=== PATIENT | female | born 2000 | race Caucasian/White ===

== ENCOUNTER 2020-08-08 15:12 | Inpatient (IN) ==
[2020-08-08] MEDS ORDERED: LACTATED RINGERS 1,000 ML IV SCH (16:00)
[2020-08-08] MEDS ORDERED: MEPERIDINE 50 MG/1 ML VIAL IV PRN (16:00)
[2020-08-08] MEDS ORDERED: BUTORPHANOL 1 MG/ML VIAL IV PRN (16:00)
[2020-08-08] MEDS ORDERED: ONDANSETRON 4 MG/2 ML VIAL IV PRN (16:00)
[2020-08-08] MEDS ORDERED: BUTORPHANOL 2 MG/ML VIAL IV PRN (16:00)
[2020-08-08] MEDS ORDERED: OXYTOCIN/LR 20 UNIT/1,000 ML BAG IV PRN (16:00)
[2020-08-08] MEDS ORDERED: ePHEDrine 50 MG/ML VIAL IV PRN (16:17)
[2020-08-08] MEDS ORDERED: PROMETHAZINE 25 MG/1 ML VIAL IM ONE (16:17)
[2020-08-08] MEDS ORDERED: CITRIC ACID/SODIUM CITRATE 30 ML UDCUP PO ONE (16:17)
[2020-08-08] MEDS ORDERED: NALOXONE 0.4 MG/ML VIAL IV PRN (16:17)
[2020-08-08] MEDS ORDERED: FAMOTIDINE 20 MG/2 ML VIAL IV ONE (16:17)
[2020-08-08] MEDS ORDERED: hydrOXYzine HCL 25 MG/1 ML VIAL IM PRN (16:17)
[2020-08-08] MEDS ORDERED: LACTATED RINGERS 1,000 ML IV ONE ×2 (16:17→23:33)
[2020-08-08] MEDS ORDERED: diphenhydrAMINE 50 MG/1 ML VIAL IV PRN ×2 (16:17)
[2020-08-08] MEDS ORDERED: ONDANSETRON 4 MG/2 ML VIAL IV ONE (16:17)
[2020-08-08] MEDS ORDERED: fentaNYL 2 MCG/ROPIV 0.2% EPID 100 ML EPIDURAL SCH (16:30)
[2020-08-08 16:38] LABS: Basophils % 0.2 % (0.0-0.8); Eosinophils % 0.3 % (0.00-10.9); Hematocrit 42.5 VOL% (35.7-47.0); Hemoglobin 14.4 GM/DL (12.0-16.0); Immature Granulocytes % 0.4 %; Immature Granulocytes Absolute 0.05 #; Lymphocytes # 1.1 10*3/uL (1.4-4.0); Lymphocytes % 9.6 % (21.3-54.2); Mean Corpuscular HGB Conc 33.9 GM/DL (32-36); Mean Platelet Volume 13.4 FL (9.6-12.0); Neutrophils % 83.5 % (38.7-73.9); Platelet Count 165 T/CUMM (130-400); Red Blood Count 4.94 MC/CUMM (3.8-5.5); Red Cell Distribution Width 13.8 % (9.3-17.3); White Blood Count 11.6 T/CUMM (4-12)
[2020-08-08 18:56] LABS: Bilirubin,Urine Negative (Negative); Blood, Urine Negative (Negative); Glucose,Urine (UA) Negative (Negative); Ketones,Urine 80 mg/dL (Negative); Mucus,Urine Few /LPF (Occasional); Nitrite,Urine Negative (Negative); Protein,Urine 30 MG/DL; Urine Appearance CLEAR (Clear); Urine Color Yellow (Yellow); Urine Specific Gravity 1.018 (1.001-1.035); Urine Urobilinogen < 2.0 EU/DL (0.2-1.0); WBC,Urine <1 /HPF (0-6)
[2020-08-08 22:24] LABS: Cord Venous Blood HCO3 21.2 MMOL/L; Cord Venous Blood PCO2 38.3 MMHG; Cord Venous Blood PO2 32.1
[2020-08-08] MEDS ORDERED: HYDROCORTISONE 2.5% RECTAL CREAM 30 GM TUBE TOP PRN (23:33)
[2020-08-08] MEDS ORDERED: ACETAMINOPHEN 325 MG TABLET PO PRN (23:33)
[2020-08-08] MEDS ORDERED: BENZOCAINE 20%/MENTHOL 0.5% SPRAY 56 GM CAN TOP PRN (23:33)
[2020-08-08] MEDS ORDERED: LANOLIN 50% CREAM 0.3 OZ TUBE TOP PRN (23:33)
[2020-08-08] MEDS ORDERED: WITCH HAZEL PADS 100/JAR TOP PRN (23:33)
[2020-08-08] MEDS ORDERED: RHO(D) IMMUNE GLOBULIN 300 MCG SYRINGE IM ONE (23:33)
[2020-08-08] MEDS ORDERED: BISACODYL 10 MG SUPP RECTAL PRN (23:33)
[2020-08-08] MEDS ORDERED: OXYTOCIN/LR 20 UNIT/1,000 ML BAG IV ONE (23:33)
[2020-08-08] MEDS ORDERED: MEASLES/MUMPS/RUBELLA VACCINE 0.5 ML VIAL SUBCUT ONE (23:33)
[2020-08-08] MEDS ORDERED: DIPH/TET/ACEL PERT BOOSTER VACCINE 0.5 ML VIAL IM ONE (23:33)
[2020-08-08] MEDS ORDERED: ACETAMINOPHEN/CODEINE 300-30 MG TABLET PO PRN (23:42)
[2020-08-09] MEDS: IBUPROFEN 800 MG TABLET PO PRN ×2 (05:04→19:20)
[2020-08-09 07:03] LABS: Basophils % 0.3 % (0.0-0.8); Eosinophils # 0.1 10*3/uL (0.0-0.87); Eosinophils % 0.5 % (0.00-10.9); Hematocrit 37.3 VOL% (35.7-47.0); Hemoglobin 12.7 GM/DL (12.0-16.0); Immature Granulocytes % 0.4 %; Immature Granulocytes Absolute 0.04 #; Lymphocytes # 1.4 10*3/uL (1.4-4.0); Lymphocytes % 12.4 % (21.3-54.2); Mean Corpuscular Volume 85.2 FL (87-102); Mean Platelet Volume 13.5 FL (9.6-12.0); Monocytes % 9.9 % (1.7-12.7); Neutrophils % 76.5 % (38.7-73.9); Platelet Count 153 T/CUMM (130-400); Red Blood Count 4.38 MC/CUMM (3.8-5.5); Red Cell Distribution Width 13.9 % (9.3-17.3); White Blood Count 11.1 T/CUMM (4-12)
[2020-08-09] MEDS: DOCUSATE SODIUM 100 MG CAPSULE PO SCH ×3 (09:33→21:08)
[2020-08-10 08:58] VITALS: BP 119/69
[2020-08-10] MEDS: DOCUSATE SODIUM 100 MG CAPSULE PO SCH (09:50)
[2020-08-10] MEDS ORDERED: INFLUENZA VIRUS VACCINE 0.5 ML SYRINGE IM ONE (09:57)
== END 2020-08-10 12:25 | disposition home or self-care (01) | DRG 560 ==
LOC: N.LDOUT 15:12 → N.LD 15:14 → N.OB 08-09 13:38
PROVIDERS: ADMIT Obstetrics & Gynecology; ATTEND Obstetrics & Gynecology

== ENCOUNTER 2021-07-29 11:55 | Inpatient (IN) ==
[2021-07-29] MEDS ORDERED: ONDANSETRON 4 MG/2 ML VIAL IV STA (13:32)
[2021-07-29] MEDS ORDERED: SODIUM CHLORIDE 0.9% 1,000 ML IV STA (13:32)
[2021-07-29 13:37] LABS: Bacteria,Urine Many /HPF (Few); Blood, Urine Negative (Negative); Glucose,Urine (UA) Negative (Negative); Ketones,Urine 80 mg/dL (Negative); Mucus,Urine Many /LPF (Occasional); Nitrite,Urine Negative (Negative); Protein,Urine 100 MG/DL; Squamous Epithelial Cell,Urine Many /HPF (0-10); Urine Appearance CLOUDY (Clear); Urine Color Amber (Yellow); Urine Specific Gravity 1.028 (1.001-1.035)
[2021-07-29 13:39] LABS: Bilirubin,Urine Moderate mg/dL (Negative)
[2021-07-29 14:01] LABS: Basophils % 0.3 % (0.0-0.8); Eosinophils % 0.3 % (0.00-10.9); Hematocrit 49.1 VOL% (35.7-47.0); Hemoglobin 15.8 GM/DL (12.0-16.0); Immature Granulocytes % 0.5 %; Immature Granulocytes Absolute 0.06 #; Lymphocytes # 0.8 10*3/uL (1.4-4.0); Lymphocytes % 6.8 % (21.3-54.2); Mean Corpuscular HGB Conc 32.2 GM/DL (32-36); Mean Corpuscular Volume 87.4 FL (87-102); Mean Platelet Volume 11.9 FL (9.6-12.0); Monocytes % 7.5 % (1.7-12.7); Neutrophils % 84.6 % (38.7-73.9); Platelet Count 246 T/CUMM (130-400); Red Blood Count 5.62 MC/CUMM (3.8-5.5); Red Cell Distribution Width 13.5 % (9.3-17.3); White Blood Count 11.5 T/CUMM (4-12)
[2021-07-29 14:22] LABS: Bilirubin,Total 5.6 MG/DL (0.20-1.00); Calcium 9.8 MG/DL (8.5-10.1); Osmolality,Calculated 266.1 MOS/KG (273-304); Potassium 3.5 MMOL/L (3.5-5.1); Total Protein 8.1 G/DL (6.4-8.2)
[2021-07-29 17:25] LABS: Hepatitis B Core IgM Quant 0.16 Index; Hepatitis B Surface Ag Quant < 0.10 Index; Hepatitis B Surface Ag Result Non-Reactive (NonReactive); Hepatitis C Virus Ab Quant 0.04 Index; Hepatitis C Virus Ab Result Non-Reactive (NonReactive)
[2021-07-29] MEDS ORDERED: ACETAMINOPHEN 325 MG TABLET PO PRN (17:56)
[2021-07-29] MEDS: PIPERACILLIN/TAZOBACTAM 3,375 MG in SODIUM CHLORIDE 0.9% 100 ML IV SCH (19:47)
[2021-07-29 20:14] LABS: Barbiturates Screen,Urine Negative (Negative); Benzodiazepines Screen,Urine Negative (Negative); Cannabinoid Screen,Urine Negative (Negative); Opiate Screen,Urine Negative (Negative); Phencyclidine Screen,Urine Negative (Negative)
[2021-07-29] MEDS: SODIUM CHLORIDE 0.9% 1,000 ML IV SCH (23:45)
[2021-07-30] MEDS: MORPHINE 2 MG/1 ML SYRINGE IV PRN ×2 (00:12→17:54)
[2021-07-30] MEDS: ONDANSETRON 4 MG/2 ML VIAL IV PRN ×2 (00:15→17:53)
[2021-07-30] MEDS: PIPERACILLIN/TAZOBACTAM 3,375 MG in SODIUM CHLORIDE 0.9% 100 ML IV SCH ×3 (04:03→19:55)
[2021-07-30 04:47] LABS: Basophils % 0.3 % (0.0-0.8); Eosinophils # 0.1 10*3/uL (0.0-0.87); Eosinophils % 0.8 % (0.00-10.9); Hematocrit 44.6 VOL% (35.7-47.0); Hemoglobin 14.4 GM/DL (12.0-16.0); Immature Granulocytes % 0.7 %; Immature Granulocytes Absolute 0.07 #; Lymphocytes # 1.1 10*3/uL (1.4-4.0); Lymphocytes % 10.3 % (21.3-54.2); Mean Corpuscular HGB Conc 32.3 GM/DL (32-36); Mean Platelet Volume 12.9 FL (9.6-12.0); Monocytes % 11.3 % (1.7-12.7); Neutrophils % 76.6 % (38.7-73.9); Platelet Count 223 T/CUMM (130-400); Red Blood Count 5.01 MC/CUMM (3.8-5.5); Red Cell Distribution Width 13.6 % (9.3-17.3); White Blood Count 10.4 T/CUMM (4-12)
[2021-07-30 06:14] LABS: Albumin 3.2 G/DL (3.4-5.0); Bilirubin,Total 5.4 MG/DL (0.20-1.00); Calcium 9.1 MG/DL (8.5-10.1); Potassium 3.7 MMOL/L (3.5-5.1); Thyroid Stimulating Hormone 1.09 uIU/ml (0.358-3.74); Total Protein 6.7 G/DL (6.4-8.2)
[2021-07-30] MEDS ORDERED: DEXTROSE 50% 25 GM/50 ML VIAL IV ONE (07:04)
[2021-07-30] MEDS ORDERED: DEXTROSE 50% 25 GM/50 ML VIAL IV PRN (07:05)
[2021-07-30] MEDS: SODIUM CHLORIDE 0.9% 1,000 ML IV SCH ×3 (08:46→17:47)
[2021-07-30] MEDS ORDERED: PANTOPRAZOLE 40 MG TABLET PO SCH (09:00)
[2021-07-30] MEDS: PANTOPRAZOLE 40 MG VIAL IV SCH (09:50)
[2021-07-30] MEDS: busPIRone 15 MG TABLET PO SCH (20:44)
[2021-07-30] MEDS ORDERED: busPIRone 5 MG TABLET PO SCH (21:00)
[2021-07-31] MEDS: SODIUM CHLORIDE 0.9% 1,000 ML IV SCH ×6 (00:25→22:45)
[2021-07-31] MEDS: PIPERACILLIN/TAZOBACTAM 3,375 MG in SODIUM CHLORIDE 0.9% 100 ML IV SCH ×2 (04:10→12:22)
[2021-07-31 06:56] LABS: PT Patient Result 10.9 SECS (10.5-12.0)
[2021-07-31] MEDS ORDERED: INDOMETHACIN SUPP 50 MG SUPP RECTAL ONE ×2 (08:00→13:00)
[2021-07-31] MEDS: busPIRone 15 MG TABLET PO SCH ×2 (09:15→21:15)
[2021-07-31] MEDS: PANTOPRAZOLE 40 MG VIAL IV SCH (09:15)
[2021-07-31] MEDS: LACTATED RINGERS 1,000 ML IV SCH (13:04)
[2021-07-31] MEDS ORDERED: ONDANSETRON 4 MG/2 ML VIAL ONE (13:52)
[2021-07-31] MEDS ORDERED: MIDAZOLAM 2 MG/2 ML VIAL ONE (13:52)
[2021-07-31] MEDS ORDERED: SEVOFLURANE 1 UNIT/15 MINUTE INH ONE ×4 (13:52→15:35)
[2021-07-31] MEDS ORDERED: LIDOCAINE 2% 5 ML VIAL ONE (13:52)
[2021-07-31] MEDS ORDERED: DEXAMETHASONE 4 MG/1 ML VIAL ONE (13:52)
[2021-07-31] MEDS ORDERED: propofoL 200 MG/20 ML VIAL IV ONE (13:52)
[2021-07-31] MEDS ORDERED: fentaNYL 100 MCG/2 ML VIAL ONE (13:52)
[2021-07-31] MEDS ORDERED: ROCURONIUM 50 MG/5 ML VIAL IV ONE (13:52)
[2021-07-31] MEDS ORDERED: GLYCOPYRROLATE 0.4 MG/2 ML VIAL ONE (15:16)
[2021-07-31] MEDS ORDERED: NEOSTIGMINE 10 MG/10 ML VIAL ONE (15:16)
[2021-07-31] MEDS ORDERED: PHENOL 1.4% THROAT SPRAY 177 ML BOTTLE PO PRN (16:58)
[2021-08-01] MEDS: PIPERACILLIN/TAZOBACTAM 3,375 MG in SODIUM CHLORIDE 0.9% 100 ML IV SCH ×3 (00:30→21:43)
[2021-08-01 04:02] LABS: Basophils % 0.1 % (0.0-0.8); Eosinophils % 0.1 % (0.00-10.9); Hemoglobin 12.7 GM/DL (12.0-16.0); Immature Granulocytes % 0.5 %; Immature Granulocytes Absolute 0.04 #; Lymphocytes % 12.7 % (21.3-54.2); Mean Corpuscular HGB Conc 32.6 GM/DL (32-36); Mean Corpuscular Volume 88.2 FL (87-102); Mean Platelet Volume 12.6 FL (9.6-12.0); Monocytes % 7.9 % (1.7-12.7); Neutrophils % 78.7 % (38.7-73.9); Platelet Count 188 T/CUMM (130-400); Red Blood Count 4.42 MC/CUMM (3.8-5.5); Red Cell Distribution Width 13.6 % (9.3-17.3); White Blood Count 7.6 T/CUMM (4-12)
[2021-08-01 04:21] LABS: Albumin 2.7 G/DL (3.4-5.0); Bilirubin,Total 3.9 MG/DL (0.20-1.00); Calcium 8.9 MG/DL (8.5-10.1); Osmolality,Calculated 271.7 MOS/KG (273-304); Potassium 3.8 MMOL/L (3.5-5.1); Total Protein 6.2 G/DL (6.4-8.2)
[2021-08-01] MEDS: SODIUM CHLORIDE 0.9% 1,000 ML IV SCH ×3 (08:28→21:42)
[2021-08-01] MEDS: busPIRone 15 MG TABLET PO SCH ×2 (08:28→21:42)
[2021-08-01] MEDS: LACTATED RINGERS 1,000 ML IV SCH (08:28)
[2021-08-01] MEDS: PANTOPRAZOLE 40 MG VIAL IV SCH (09:52)
[2021-08-01] MEDS ORDERED: HYDROmorphone 2 MG/1 ML VIAL IV PRN (10:45)
[2021-08-01] MEDS ORDERED: SUCCINYLCHOLINE 200 MG/10 ML VIAL ONE (14:31)
[2021-08-01] MEDS ORDERED: DEXAMETHASONE 4 MG/1 ML VIAL ONE (14:31)
[2021-08-01] MEDS ORDERED: ONDANSETRON 4 MG/2 ML VIAL ONE (14:31)
[2021-08-01] MEDS ORDERED: propofoL 200 MG/20 ML VIAL IV ONE ×2 (14:31→16:47)
[2021-08-01] MEDS ORDERED: LIDOCAINE 2% 5 ML VIAL ONE (14:31)
[2021-08-01] MEDS ORDERED: ROCURONIUM 50 MG/5 ML VIAL IV ONE ×2 (14:31→16:47)
[2021-08-01] MEDS ORDERED: BUPIVACAINE MPF 0.25% 30 ML VIAL ONE (14:54)
[2021-08-01] MEDS ORDERED: LIDOCAINE 1%/EPI INJ 20 ML VIAL ONE (14:54)
[2021-08-01] MEDS ORDERED: TISSUE ADHESIVE 1 EACH APPLICATOR TOP ONE (14:54)
[2021-08-01] MEDS ORDERED: fentaNYL 100 MCG/2 ML VIAL ONE ×2 (15:38→16:29)
[2021-08-01] MEDS ORDERED: MIDAZOLAM 2 MG/2 ML VIAL ONE (15:38)
[2021-08-01] MEDS ORDERED: DESFLURANE 1 UNIT/15 MINUTE INH ONE ×3 (16:47→17:48)
[2021-08-01] MEDS ORDERED: SODIUM CHLORIDE 0.9% 1,000 ML IV ONE (16:47)
[2021-08-01] MEDS ORDERED: GLYCOPYRROLATE 0.4 MG/2 ML VIAL ONE (17:21)
[2021-08-01] MEDS ORDERED: NEOSTIGMINE 10 MG/10 ML VIAL ONE (17:21)
[2021-08-01] MEDS ORDERED: ONDANSETRON 4 MG/2 ML VIAL IV PRN (18:18)
[2021-08-01] MEDS: HYDROmorphone 2 MG/1 ML VIAL IV PRN ×2 (18:22→18:27)
[2021-08-01 18:54] VITALS: BP 120/91
[2021-08-01] MEDS: ONDANSETRON 4 MG/2 ML VIAL IV PRN (21:43)
[2021-08-02] MEDS: PIPERACILLIN/TAZOBACTAM 3,375 MG in SODIUM CHLORIDE 0.9% 100 ML IV SCH (05:40)
[2021-08-02] MEDS: MORPHINE 2 MG/1 ML SYRINGE IV PRN (05:50)
[2021-08-02 06:04] LABS: Basophils % 0.2 % (0.0-0.8); Eosinophils % 0.1 % (0.00-10.9); Hematocrit 38.3 VOL% (35.7-47.0); Hemoglobin 12.2 GM/DL (12.0-16.0); Immature Granulocytes % 0.4 %; Immature Granulocytes Absolute 0.04 #; Lymphocytes % 11.1 % (21.3-54.2); Mean Corpuscular HGB Conc 31.9 GM/DL (32-36); Mean Corpuscular Volume 89.5 FL (87-102); Mean Platelet Volume 12.8 FL (9.6-12.0); Monocytes % 7.3 % (1.7-12.7); Neutrophils % 80.9 % (38.7-73.9); Platelet Count 198 T/CUMM (130-400); Red Blood Count 4.28 MC/CUMM (3.8-5.5); Red Cell Distribution Width 14.2 % (9.3-17.3); White Blood Count 8.9 T/CUMM (4-12)
[2021-08-02] MEDS: SODIUM CHLORIDE 0.9% 1,000 ML IV SCH (06:17)
[2021-08-02 06:30] LABS: Albumin 2.6 G/DL (3.4-5.0); Bilirubin,Total 3.3 MG/DL (0.20-1.00); Calcium 8.6 MG/DL (8.5-10.1); Osmolality,Calculated 275.4 MOS/KG (273-304); Potassium 3.6 MMOL/L (3.5-5.1); Total Protein 5.9 G/DL (6.4-8.2)
[2021-08-02] MEDS: PANTOPRAZOLE 40 MG VIAL IV SCH (08:07)
[2021-08-02] MEDS: busPIRone 15 MG TABLET PO SCH (08:07)
== END 2021-08-02 10:15 | disposition home or self-care (01) | DRG 418 ==
LOC: N.ED 11:55 → SUATTDRO 17:56 → N.EDINP 17:56 → N.ICU 20:30
PROVIDERS: ADMIT Family Medicine; ATTEND Internal Medicine
PROC: ERCPWSP (ICD-10-PCS; 2021-07-31 13:05)
PROC: LAPCHOL (2021-08-01 16:06)